=== PATIENT | female | born 1965 | race Caucasian/White ===

== ENCOUNTER 2017-05-10 17:26 | Emergency (ER) | payer OTHER ==
[~2017-05-10] VITALS: Ht 162.6 cm; Wt 102.3 kg
[2017-05-10 17:27] VITALS: BP 170/86; PULSE 77; RESP 16; TEMP 98.9; O2SAT 100
[2017-05-10] MEDS ORDERED: CHOLESTEROL PILL (17:49)
[2017-05-10] MEDS ORDERED: VENLAFAXINE (17:49)
[2017-05-10] MEDS ORDERED: ASPI81TA81 (17:49)
[2017-05-10] MEDS ORDERED: ATEN25TA PO (17:49)
--- NOTE | 2017-05-10 18:26 | PD ---
HPI Chief Complaint: Exposure to Blood/Body Fluids Time Seen by Provider: 17:37 Travel History International Travel<30 days: No Contact w/Intl Traveler<30days: No Traveled to known affect area: No History of Present Illness HPI 51-year-old female presents to the emergency room after a stick exposure at her jaw. 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 Cavitron instrument is used to spray high pressure water into the crevices of teeth to help reduce plaque. Does not typically touch the tooth. States it poked deep enough to dangle before she pulled it out. States she squeezed a small amount of blood out and washed it with alcohol. She put triple antibiotic ointment and a Band-Aid on. She told her boss because the source patient was HIV positive. Boss recommended she come to the emergency room after speaking to OS. Patient denies history of HIV. No chronic medical conditions or daily medications. Up- to-date on tetanus. [facility] Past Medical History Cardiovascular Problems: Yes (HTN) High Cholesterol: Yes Hypertension: Yes Tetanus Vaccination: < 5 Years Influenza Vaccination: Yes ?: Not Past Surgical History Surgical History: No Previous Surgery Social History Alcohol Use: No Tobacco Use: No Substance Use: No Allergies-Medications (Allergen,Severity, Reaction): Coded Allergies: No Known Allergies (Unverified , 05/10/17) Reported Meds & Prescriptions Reported Meds & Active Scripts Active Augmentin (Amoxicillin-Clavulanate) 875-125 Mg Tab 1 Tab PO BID 10 Days Reported Aspir-81 (Aspirin) 81 Mg Tabdr [Cholesterol Pill] [Venolfexine] Atenolol 25 Mg Tab 12.5 Mg PO DAILY Review of Systems Except as stated in HPI: all other systems reviewed are Neg Physical Exam Narrative GENERAL: Well-nourished, well-developed female in no acute distress. Afebrile. Ambulatory. SKIN: Focused skin assessment warm/dry. There is a 1 mm puncture wound to the left dorsal forearm. No surrounding erythema or drainage. Nontender. No bleeding. HEAD: Normocephalic. EYES: No scleral icterus. No injection or drainage. NECK: Supple, trachea midline. No JVD or lymphadenopathy. CARDIOVASCULAR: Regular rate and rhythm without murmurs, gallops, or rubs. RESPIRATORY: Breath sounds equal bilaterally. No accessory muscle use. PSYCHIATRIC: No delusional thought processes. No hallucinations. Data Data Last Documented VS Vital Signs Date Time Temp Pulse Resp B/P (MAP) Pulse Ox O2 Delivery O2 Flow Rate FiO2 05/10/17 19:23 05/10/17 17:27 98.9 77 16 100 Room Air Orders Orders Hepatitis B Surface Ab (05/10/17 18:05) Hepatitis C Ab,Igg (05/10/17 18:05) Hiv Antibody Screen (05/10/17 18:05) Comprehensive Metabolic Panel (05/10/17 18:05) Complete Blood Count With Diff (05/10/17 18:05) Ed Discharge Order (05/10/17 19:12) Labs Laboratory Tests Test 05/10/17 18:50 White Blood Count 8.5 TH/MM3 Red Blood Count 4.63 MIL/MM3 Hemoglobin 13.3 GM/DL Hematocrit 38.7 % Mean Corpuscular Volume 83.7 FL Mean Corpuscular Hemoglobin 28.7 PG Mean Corpuscular Hemoglobin Concent 34.3 % Red Cell Distribution Width 12.9 % Platelet Count 262 TH/MM3 Mean Platelet Volume 8.1 FL Neutrophils (%) (Auto) 53.6 % Lymphocytes (%) (Auto) 35.1 % Monocytes (%) (Auto) 6.4 % Eosinophils (%) (Auto) 4.3 % Basophils (%) (Auto) 0.6 % Neutrophils # (Auto) 4.6 TH/MM3 Lymphocytes # (Auto) 3.0 TH/MM3 Monocytes # (Auto) 0.5 TH/MM3 Eosinophils # (Auto) 0.4 TH/MM3 Basophils # (Auto) 0.1 TH/MM3 CBC Comment DIFF FINAL Differential Comment Blood Urea Nitrogen 14 MG/DL Creatinine 0.71 MG/DL Random Glucose 98 MG/DL Total Protein 8.3 GM/DL Albumin 3.8 GM/DL Calcium Level 9.4 MG/DL Alkaline Phosphatase 106 U/L Aspartate Amino Transf (AST/SGOT) 42 U/L Alanine Aminotransferase (ALT/SGPT) 72 U/L Total Bilirubin 0.3 MG/DL Sodium Level 135 MEQ/L Potassium Level 4.1 MEQ/L Chloride Level 101 MEQ/L Carbon Dioxide Level 28.1 MEQ/L Anion Gap 6 MEQ/L Estimat Glomerular Filtration Rate 86 ML/MIN Hepatitis B Surface Antibody, Quant 0 mIU/mL Hepatitis C Antibody NEGATIVE HIV (1&2) Antibody NEGATIVE MDM Medical Decision Making Medical Screen Exam Complete: Yes Emergency Medical Condition: Yes Medical Record Reviewed: Yes Differential Diagnosis Needle exposure, postexposure prophylaxis, normal exam, puncture wound Narrative Course 51-year-old female presents to the emergency room for evaluation after being stabbed in the left forearm by a sharp metal object that is used to spray high- pressure water into the mouth to remove plaque at work. She was told by her work to come for evaluation and treatment because the source patient is HIV positive. Physical exam reveals a 1 mm superficial puncture wound to the left forearm without surrounding erythema. No drainage. No induration. I counseled the patient on postexposure prophylaxis with recommendation to forego at this time. Because the instrument is not a needle and only punctured the superficial skin of her left forearm, the risk is very low. Patient was counseled on the side effects of the prophylactic medications in order to await the risks and benefits. Basic labs obtained. HIV and hepatitis B and C ordered. Patient transferred to [facility] for workup and disposition. Please see alternate provider note for details. Diagnosis Primary Impression: Exposure Qualified Codes: T75.89XA - Other specified effects of external causes, initial encounter Referrals: Primary Care Physician Patient Instructions: Postexposure Prophylaxis (ED) Additional Instructions: Rest and drink plenty of fluids. Augmentin as directed, until gone. Follow-up with Worker's Comp. Return to the emergency room for worsening symptoms. Med/Other Pt SpecificInfo: Prescription(s) given Scripts Amoxicillin-Clavulanate (Augmentin) 875-125 Mg Tab 1 TAB PO BID for Infection for 10 Days, TAB 0 Refills Prov: Tex Saldana MD 05/10/17 Disposition: DISCHARGE HOME Condition: Stable Evie Callaway May 10, 2017 18:26
--- NOTE | 2017-05-10 18:32 | PD ---
Data Data Last Documented VS Vital Signs Date Time Temp Pulse Resp B/P (MAP) Pulse Ox O2 Delivery O2 Flow Rate FiO2 05/10/17 19:23 05/10/17 17:27 98.9 77 16 100 Room Air Orders Orders Hepatitis B Surface Ab (05/10/17 18:05) Hepatitis C Ab,Igg (05/10/17 18:05) Hiv Antibody Screen (05/10/17 18:05) Comprehensive Metabolic Panel (05/10/17 18:05) Complete Blood Count With Diff (05/10/17 18:05) Ed Discharge Order (05/10/17 19:12) Labs Laboratory Tests Test 05/10/17 18:50 White Blood Count 8.5 TH/MM3 Red Blood Count 4.63 MIL/MM3 Hemoglobin 13.3 GM/DL Hematocrit 38.7 % Mean Corpuscular Volume 83.7 FL Mean Corpuscular Hemoglobin 28.7 PG Mean Corpuscular Hemoglobin Concent 34.3 % Red Cell Distribution Width 12.9 % Platelet Count 262 TH/MM3 Mean Platelet Volume 8.1 FL Neutrophils (%) (Auto) 53.6 % Lymphocytes (%) (Auto) 35.1 % Monocytes (%) (Auto) 6.4 % Eosinophils (%) (Auto) 4.3 % Basophils (%) (Auto) 0.6 % Neutrophils # (Auto) 4.6 TH/MM3 Lymphocytes # (Auto) 3.0 TH/MM3 Monocytes # (Auto) 0.5 TH/MM3 Eosinophils # (Auto) 0.4 TH/MM3 Basophils # (Auto) 0.1 TH/MM3 CBC Comment DIFF FINAL Differential Comment Blood Urea Nitrogen 14 MG/DL Creatinine 0.71 MG/DL Random Glucose 98 MG/DL Total Protein 8.3 GM/DL Albumin 3.8 GM/DL Calcium Level 9.4 MG/DL Alkaline Phosphatase 106 U/L Aspartate Amino Transf (AST/SGOT) 42 U/L Alanine Aminotransferase (ALT/SGPT) 72 U/L Total Bilirubin 0.3 MG/DL Sodium Level 135 MEQ/L Potassium Level 4.1 MEQ/L Chloride Level 101 MEQ/L Carbon Dioxide Level 28.1 MEQ/L Anion Gap 6 MEQ/L Estimat Glomerular Filtration Rate 86 ML/MIN MDM Supervised Visit with ZEFERINO: Yes Narrative Course I, Dr. Saldana, have reviewed the advance practice practitioner's documentation and am in agreement, met with the patient face to face, made the diagnosis, and the medical decision making was done by me. *My assessment and Findings: Patient seen and examined by me, patient was counseled on the risks benefits competitions and alternatives of HIV prophylaxis, also recommended to her aunt. Augmentin for the human saliva exposure and puncture wound to the left forearm. Tetanus is up-to-date, she after discussion the risks benefits, occasions and alternatives has declined prophylaxis HIV treatment. Her baseline labs were drawn. She is stable for discharge. Diagnosis Primary Impression: Exposure Qualified Codes: T75.89XA - Other specified effects of external causes, initial encounter Referrals: Primary Care Physician Patient Instructions: Postexposure Prophylaxis (ED) Additional Instruction: Rest and drink plenty of fluids. Augmentin as directed, until gone. Follow-up with Worker's Comp (through your employer) Return to the emergency room for worsening symptoms. Med/Other Pt SpecificInfo: Prescription(s) given Scripts Amoxicillin-Clavulanate (Augmentin) 875-125 Mg Tab 1 TAB PO BID for Infection for 10 Days, TAB 0 Refills Prov: Tex Saldana MD 05/10/17 Disposition: 01 DISCHARGE HOME Condition: Stable Tex Saldana MD May 10, 2017 18:32
[2017-05-10] MEDS ORDERED: AUGM875T3 PO (19:11)
[2017-05-10 19:12] LABS: AUTOMATED NEUTROPHIL # 4.6 TH/MM3 (1.8-7.7); BASOPHIL # 0.1 TH/MM3 (0-0.2); BASOPHIL % 0.6 % (0.0-2.0); EOSINOPHIL # 0.4 TH/MM3 (0-0.4); EOSINOPHIL % 4.3 % (0.0-4.0); HEMATOCRIT 38.7 % (35.0-46.0); HEMOGLOBIN 13.3 GM/DL (11.6-15.3); LYMPH % 35.1 % (9.0-44.0); MEAN CELL VOLUME 83.7 FL (80.0-100.0); MEAN CORPUSCULAR HEMOGLOBIN 28.7 PG (27.0-34.0); MEAN CORPUSCULAR HGB CONC 34.3 % (32.0-36.0); MEAN PLATELET VOLUME 8.1 FL (7.0-11.0); MONO % 6.4 % (0.0-8.0); MONOCYTE # 0.5 TH/MM3 (0-0.9); NEUT % 53.6 % (16.0-70.0); PLATELET COUNT 262 TH/MM3 (150-450); RED BLOOD COUNT 4.63 MIL/MM3 (4.00-5.30); RED CELL DISTRIBUTION WIDTH 12.9 % (11.6-17.2); WHITE BLOOD COUNT 8.5 TH/MM3 (4.0-11.0)
[2017-05-10 19:27] LABS: ALBUMIN 3.8 GM/DL (3.4-5.0); AST (GOT) 42 U/L (15-37); BICARBONATE 28.1 MEQ/L (21.0-32.0); BLOOD UREA NITROGEN 14 MG/DL (7-18); CALCIUM 9.4 MG/DL (8.5-10.1); CREATININE 0.71 MG/DL (0.50-1.00); GLOMERULAR FILTRATION RATE 86 ML/MIN (>89); GLUCOSE,RANDOM 98 MG/DL (74-106)
[2017-05-10 19:29] LABS: ALT (GPT) 72 U/L (10-53)
[2017-05-10 20:19] LABS: ALKALINE PHOSPHATASE 106 U/L (45-117); CHLORIDE 101 MEQ/L (98-107); SODIUM (NA) 135 MEQ/L (136-145); TOTAL BILIRUBIN ADULT 0.3 MG/DL (0.2-1.0); TOTAL PROTEIN 8.3 GM/DL (6.4-8.2)
[2017-05-11 13:04] LABS: HEPATITIS C AB IgG NEGATIVE (NEGATIVE)
== END 2017-05-10 19:20 | disposition home or self-care (01) ==
LOC: NEPK 17:26 → NEPD 19:20
DX: S51.832A Puncture wound without foreign body of left forearm, initial encounter (principal); W26.8XXA Contact with other sharp object(s), not elsewhere classified, initial encounter; Y93.F9 Activity, other caregiving; Y92.531 Health care provider office as the place of occurrence of the external cause; Y99.0 Civilian activity done for income or pay; I10 Essential (primary) hypertension; E78.00 Pure hypercholesterolemia, unspecified; Z20.6 Contact with and (suspected) exposure to human immunodeficiency virus [HIV]
CPT/HCPCS: 80053; 85025; 86317; 86703; 86803; 99283